=== PATIENT | female | born 1970 | race Caucasian/White ===

== ENCOUNTER 2022-02-23 13:46 | Outpatient (CLI) | payer BC, SELFPAY ==
--- NOTE | 2022-02-23 14:00 | CRLHL7_ITS ---
For Patients: As a result of the Century Cures Act, medical imaging exams and procedure reports are released immediately into your electronic medical record. You may view this report before your referring provider. If you have questions, please contact your health care provider. INDICATION: POST MENOPAUSAL BLEEDING COMPARISON: none TECHNIQUE: 2D headley scale and color Doppler images were acquired of the pelvis using a transabdominal and transvaginal approach. FINDINGS: Uterine echotexture is heterogeneous. Uterus measures 7.7 cm in length by 4.0 cm in AP diameter by 5.2 cm in transverse dimension. Right fundal uterine fibroid is present measuring 1.3 x 1.1 x 1.6 cm. Left lower uterine segment fibroid noted measuring 9 x 8 x 11 millimeters. Right lateral fibroid measures 2.1 x 1.5 x 2.0 cm. Areas of increased echogenicity within the lower uterine segment endometrium likely represents air. Endometrial thickness 7 millimeters. The right ovary measures 3.1 x 1.1 x 1.3 cm in size and the left ovary is not visualized. The right ovary demonstrates normal arterial and venous blood flow on color Doppler analysis. There are no suspicious fluid collections within the cul-de-sac. IMPRESSION: Endometrium is somewhat heterogeneous and measures 7 millimeters. Air is suspected within the lower uterine endometrial canal. Multiple uterine fibroids, partially exophytic and intramural, measuring up to 2.1 cm. Dictated by Andrew Rueda MD @ 02/24/2022 10:00:58 AM (Electronically Signed)
== END 2022-02-23 13:47 | disposition home or self-care (01) ==
PROVIDERS: Visit Provider Obstetrics & Gynecology
DX: N95.0 Postmenopausal bleeding (principal); D25.1 Intramural leiomyoma of uterus
CPT/HCPCS: 76830; 76856

== ENCOUNTER 2022-03-24 07:47 | Day surgery (SDC) | payer BC, SELFPAY ==
[2022-03-24] MEDS: LACTATED RINGERS 1000 ML 1,000 ML 100 ML IV ×3 (07:30→11:13)
[2022-03-24 07:59] VITALS: BMI 39.2
[2022-03-24 08:24] LABS: Ur HCG Qualitative* Negative (Negative)
[2022-03-24 08:32] VITALS: BP 139/75; PULSE 72; RESP 18; TEMP 36.7; O2SAT 99
--- NOTE | 2022-03-24 09:53 | W.PM.GYNPROC ---
Procedure Note Date Seen: 03/24/22 Procedure Details: PREOPERATIVE DIAGNOSIS: Postmenopausal bleeding Thickened endometrial stripe on ultrasound POSTOPERATIVE DIAGNOSIS: Postmenopausal bleeding Thickened endometrium PROCEDURE: Hysteroscopy, dilation and curettage SURGEON: Naina Nagy MD ANESTHESIA: Monitored anesthesia care, paracervical block IV FLUIDS: 450 mL crystalloid URINE OUTPUT: Approximately 10 mL EBL: 5 mL SALINE DEFICIT: 45 mL FINDINGS: 1. Upon pelvic exam under anesthesia, vagina and cervix were normal in appearance. Uterus was mobile, anteverted, and of normal size and texture. There were no palpable adnexal masses. 2. Upon hysteroscopy, the endometrium appeared slightly thickened in an erratic fashion, with patches of reddened endometrium irregularly throughout. The cavity was of normal shape, and tubal ostia were normal in appearance. Endocervix was normal appearance. COMPLICATIONS: None PROCEDURE IN DETAIL: Patient was taken to the operating room with IV running. She was positioned in dorsal lithotomy position with her legs fully supported in Yellofin stirrups. Monitored anesthesia care was administered. She was prepped and draped in the usual sterile fashion. Exam under anesthesia was performed for the above-noted findings. Her bladder was drained via straight catheterization. Speculum was inserted. Cervix visualized and grasped along the anterior lip with a single-tooth tenaculum. Cervix was serially dilated to accommodate the TRUCLEAR hysteroscope. This was assembled with saline inflow and outflow in place. The line was flushed of bubbles. The hysteroscope was advanced through the cervix into the endometrial cavity for the above noted findings. The tissue morcellator was then inserted through the operating channel. Window lock was performed. Under direct visualization, the endometrial cavity was circumferentially curetted with the tissue morcellator. The hysteroscope and morcellator were then removed from the uterus. Tenaculum was removed from the anterior lip of cervix. Hemostasis was achieved with silver nitrate. Patient tolerated procedure well. She was taken to recovery area in stable condition.
--- NOTE | 2022-03-24 10:34 | W.ANESCHARGE ---
Anesthesia Charges Start Date/Time Anesthesia Start Date: 03/24/22 Anesthesia Start Time: 08:32 Stop Date/Time Anesthesia Stop Date: 03/24/22 Anesthesia Stop Time: 09:33
[2022-03-24 10:36] VITALS: BP 127/77; PULSE 68; RESP 16; TEMP 36.1; O2SAT 99
[2022-03-24 10:45] VITALS: BP 135/81; PULSE 72; RESP 16; O2SAT 99
[2022-03-24 11:11] VITALS: BP 134/82; PULSE 74; RESP 18; O2SAT 99
--- NOTE | 2022-03-24 11:49 | W.ANESCHARGE ---
Anesthesia Charges Start Date/Time Anesthesia Start Date: 03/24/22 Anesthesia Start Time: 08:32 Stop Date/Time Anesthesia Stop Date: 03/24/22 Anesthesia Stop Time: 09:33
== END 2022-03-24 11:40 | disposition home or self-care (01) ==
PROVIDERS: Anesthesiology; Visit Provider Obstetrics & Gynecology
PROC: 0UDB8ZZ Extraction of Endometrium, Via Natural or Artificial Opening Endoscopic (ICD-10-PCS; CPT 58558; principal; 2022-03-24 09:00)
DX: N95.0 Postmenopausal bleeding (principal); R93.89 Abnormal findings on diagnostic imaging of other specified body structures
CPT/HCPCS: 58558; 00952; 36415; 81025; 86850; 86900; 86901; J1100; J2250; J2405; J2704; J3010; J7120

== ENCOUNTER 2023-10-13 00:06 | Emergency (ER) | payer BC, SELFPAY ==
[2023-10-13 00:21] VITALS: BP 126/75; PULSE 109; RESP 16; TEMP 37.1; O2SAT 96; BMI 40.5
--- NOTE | 2023-10-13 00:41 | XR_ITS ---
Patient: SENIA PRETSON Facility:?[facility] Patient ID:?[id number] Site Patient ID:?[id number] Site :?[id number] Study:?XRay-Abdomen 2 VIEW-10/13/2023 1:09:37 AM Ordering Physician:ROSAMARIA Final Report: INDICATION: Pelvic pressure, recent surg- knee surgery TECHNIQUE: Abdomen/Pelvis radiograph 3 views COMPARISON: None FINDINGS: The sensitivity and specificity of the exam are moderately limited by the patient`s body habitus. Bowel: The bowel gas pattern is normal without evidence of bowel obstruction. Soft tissue: No evidence of pneumoperitoneum present. No suspicious calcifications noted. Bone: Unremarkable for age. IMPRESSION: 1. Unremarkable appearance of the visualized abdomen. Dictated by: Robbi Trotter MD @ 10/13/2023 01:10:33 Signed by:Lamar Trotter MD @10/13/2023 1:10:33 AM (Electronic Signature)
--- NOTE | 2023-10-13 00:42 | ED_ITS ---
HPI - General Adult General Chief complaint: Urogenital Problems, Female Stated complaint: Unable to Urinate Time Seen by Provider: 10/13/23 00:07 Source: patient Mode of arrival: ambulatory Limitations: no limitations History of Present Illness HPI narrative: 53-year-old female postop day 3 from uncomplicated left total knee arthroplasty performed at outside center presents for pelvic pressure that radiates into the low back and feeling of constipation. She presents because she was concerned that she could not urinate. Reports that she had been voiding normally until about lunchtime. Has been feeling increasingly constipated and has been using MiraLax, senna, Colace as recommended by her postop team. She says that she has been straining with bowel movements and will have some leakage of urine with t hat as recently as about 4 hours ago, but nothing since. She feels a sensation of pelvic pressure and fullness. She thinks that may be urinary retention. I had the nurse bladder scan her during triage and we are only showing about 50 mL. She has no prior history of urinary retention, she Has never given . No fevers. Once I let her know that her bladder scan did not show a significant amount of urine, she states that she thinks it must be hard stool in the pelvic region that is causing her symptoms and does not know how to relieve it. She has tried a Fleet enema. She is having leakage of soft and liquidy stool around what feels like a hard lump. Denies prior history of rectocele or pelvic floor issues. No prior abdominal surgeries. No dysuria or hematuria. States that she believes that she could be getting dehydrated now to as she has not been drinking liquids as well through today due to her abdominal discomfort. No vomiting. Past medical history benign per her report. Denies long-term medications. Her only prescribed medications are her postoperative medications which include oxycodone, Celebrex, senna, prophylactic aspirin. Her accompanying paperwork is reviewed. Nonsmoker. ROS notable for the abdominal /pelvic symptoms as described above only, otherwise denies times 12 systems. Related Data Home Medications Medication Instructions Recorded Confirmed acetaminophen 650 mg 1,300 mg PO Q12H 02/23/22 10/13/23 tablet,extended release (Tylenol Arthritis Pain) naproxen sodium 220 mg tablet 440 mg PO QDAY 02/23/22 10/13/23 (Aleve) omeprazole 20 mg capsule,delayed 20 mg PO QDAY 02/23/22 10/13/23 release aspirin 81 mg tablet,delayed 81 mg PO BID 10/13/23 10/13/23 release celecoxib 200 mg capsule 200 mg PO DAILY 10/13/23 10/13/23 hydroxyzine pamoate 25 mg capsule 25 mg PO Q4-6H PRN muscle spasm 10/13/23 10/13/23 ondansetron 4 mg disintegrating 4 mg PO Q4H nausea 10/13/23 10/13/23 tablet oxycodone 5 mg tablet 5 mg PO Q4-6H PRN pain 10/13/23 10/13/23 sennosides 8.6 mg-docusate sodium 1 tab PO DAILY PRN 10/13/23 10/13/23 50 mg tablet (Stimulant Laxative Plus) tramadol 50 mg tablet 50 - 100 mg PO Q4-6H PRN pain 10/13/23 10/13/23 Allergies Allergy/AdvReac Type Severity Reaction Status Date / Time azithromycin Allergy Intermediate nausea and Verified 10/13/23 00:21 vomiting PFSH PFSH Medical History Knee pain ?M25.569 - Pain in unspecified knee (ICD-10) Surgical History H/O wisdom tooth extraction ?K08.409 - Partial loss of teeth, unspecified cause, unspecified class (ICD- 10) H/O arthroscopy of left knee ?Z98.890 - Other specified postprocedural states (ICD-10) S/P excision of lipoma ?Z98.890 - Other specified postprocedural states (ICD-10) ?Z86.018 - Personal history of other benign neoplasm (ICD-10) Hx of appendectomy ?Z90.49 - Acquired absence of other specified parts of digestive tract (ICD- 10) Family History Aunt Uterine cancer Mother Uterine cancer Paternal Grandfather Coronary artery disease Social History Narrative: She lives in [place] with her partner of 13 years. She is employed at [employer]. She does not smoke She really drinks alcohol She does not use recreational drugs Smoking Status: Never smoker Do you use any of these nicotine containing products: None How often do you have a drink containing alcohol: monthly or less Alcohol type: wine How many standard drinks containing alcohol do you have on a typical day: 1 or 2 How often do you have six or more drinks on one occasion: Never AUDIT-C Alcohol total score: 1 Non-prescribed substance use: denies use Caffeine: Yes (COFFEE) Are you using contraception or practicing any form of control: No Exam Const: Vital Signs, click to edit/add: Vital Signs - 24 hr 10/13/23 00:21 Temperature 98.7 F Pulse Rate [Pulse Oximeter] 109 H Respiratory Rate 16 Blood Pressure [Ri ght Upper Arm] 126/75 Pulse Oximetry 96 Oxygen Delivery Me thod Room Air Documenting provider has reviewed patient's vital signs: yes Common normals: no apparent distress General appearance: cooperative and well kempt HENMT: Common normals: normocephalic Head and scalp: normocephalic Face and sinus: normal facial exam Mouth: oral and palatal mucosa normal Throat: posterior oropharynx normal Eye: General eye: normal appearance of both eyes Resp: Common normals: normal respiratory effort and no use of accessory muscles Effort & inspection: able to speak in complete sentences Cardio: Common normals: regular rate and regular rhythm Rate: regular rate Rhythm: regular rhythm Other: 2/6 systolic ejection murmur GI: Common normals: Normal to inspection, nondistended, normoactive bowel sounds present, soft to palpation, non-tender, no hepatosplenomegaly and no masses Palpation: soft and no hepatosplenomegaly Other: obese but soft. Bowel sounds are normoactive throughout. Extremity: Other: Left knee with midline incision consistent with reported procedure. No surrounding redness. Minimal swelling. Compression stocking in place and lower to examine calf. Soft, no obvious signs of DVT, redness, inflammation or tenderness. Psych: Appearance: well kempt Activity/motor behavior: appropriate eye contact Insight: insight good Judgement: judgment good Skin: Narrative: Expected postoperative changes, otherwise skin exam benign. Course Course ED Course: Bladder scan showing less than 2 oz. I do not suspect urinary retention. I suspect that she has retained hard stool that is causing her pelvic pressure. I am concerned that she could be getting dehydrated since she has not urinated in this period of time and also does not have much urine in her bladder. Will place an IV they will check a CBC and basic electrolytes, give 1 L of normal saline. Abdominal x-ray to assess constipation or other issues that could be contributing to her pelvic symptoms. If this is negative which I will suspect it will be. Within recommend more aggressive management of fecal retention, likely manual disimpaction. Reevaluation(s) Time of Reevaluation #1: 02:56 Reevaluation #1: Patient had good relief after 2nd half of the enema. Passed a large amount of firm, yousif like stool and then liquid stool behind. She tolerated the IV fluid with no difficulty. Pelvic pressure sensation is relieved. She is feeling better. We discussed stool regimen. She will continue on once daily MiraLax, increase her senna to 1 tablet twice daily and continue on twice daily Colace. Instructed on how to titrate the senna based on the number of oxycodone that she is using and increase the MiraLax up to every 8 hours as needed to facilitate a bowel movement every 24 hours. She will continue her current pain medication regimen, alarm symptoms reviewed. She verbalizes understanding and agreement. Vital Signs Vital signs: Initial Vital Signs Temperature 98.7 F 10/13/23 00:21 Temperature Source Temporal Artery Scan 10/13/23 00:21 Pulse Rate 109 H 10/13/23 00:21 Pulse Strength 3+ Normal 10/13/23 00:21 Respiratory Rate 16 10/13/23 00:21 Blood Pressure 126/75 10/13/23 00:21 Blood Pressure Mean 92 10/13/23 00:21 Blood Pressure Position Sitting 10/13/23 00:21 Pulse Oximetry 96 10/13/23 00:21 Oxygen Delivery Method Room Air 10/13/23 00:21 Vital Signs Temperature 98.7 F 10/13/23 00:21 Pulse Rate 109 H 10/13/23 00:21 Respiratory Rate 16 10/13/23 00:21 Blood Pressure 126/75 10/13/23 00:21 Pulse Oximetry 96 10/13/23 00:21 Oxygen Delivery Method Room Air 10/13/23 00:21 Temperature 98.7 F 10/13/23 00:21 Pulse Rate 109 H 10/13/23 00:21 Respiratory Rate 16 10/13/23 00:21 Blood Pressure 126/75 10/13/23 00:21 Pulse Oximetry 96 10/13/23 00:21 Oxygen Delivery Method Room Air 10/13/23 00:21 Medications Administered Medications: Discontinued Medications Generic Name Dose Route Start Last Admin Trade Name Freq PRN Reason Stop Dose Admin Docusate Sodium 100 mg 10/13/23 01:41 10/13/23 01:44 Docusate Sodium 100 Mg Capsule J-TUBE 10/13/23 01:42 100 mg ONCE ONE Administration Sodium Chloride 1,000 mls @ 1,000 mls/hr 10/13/23 00:41 10/13/23 01:15 0.9 % Sodium Chloride 1000 Ml IV 10/13/23 01:40 1,000 mls/hr .Q1H BARBIE Administration Magnesium Citrate 150 ml 10/13/23 01:39 10/13/23 01:43 Magnesium Citrate 300 Ml Solution J-TUBE 10/13/23 01:40 150 ml ONCE ONE Administration Mineral Oil 60 ml 10/13/23 01:40 10/13/23 01:44 Mineral Oil ME 10/13/23 01:41 60 ml ONCE ONE Administration Medical Decision Making Lab Data Lab results reviewed: Yes I reviewed the patient's lab results Lab results narrative: Creatinine looks great. BUN creatinine ratio was a little elevated, indicating some mild dehydration. Remainder of labs are essentially reassuring for the postoperative state. Mild elevation neutrophils and white blood cell count, not necessarily diagnostic of infection and postoperative state. No fever, tachycardia or other worrisome findings. Labs: Lab Results 10/13/23 Range/Units 01:11 WBC 15.22 H (4.50-11.00) K/uL RBC 3.70 L (4.00-5.20) m/uL Hgb 10.7 L (12.0-16.0) gm/dL Hct 32.8 L (33.0-51.0) % MCV 89 (80-100) fL MCH 29 (26-34) pg MCHC 33 (32-36) gm/dL RDW Coeff of Zhao 12.9 (11.5-15.5) % Plt Count 347 (140-440) K/uL Neut % (Auto) 81.8 H (42.0-72.0) % Lymph % (Auto) 10.3 L (20-44) % [place] % (Auto) 6.6 (0.0-11.0) % Eos % (Auto) 1.0 (0.0-7.0) % Baso % (Auto) 0.1 (0.0-3.0) % Neut # (Auto) 12.40 H (1.7-7.0) K/uL Lymph # (Auto) 1.60 (0.90-2.90) K/uL [place] # (Auto) 1.00 H (0.00-0.90) K/UL Eos # (Auto) 0.20 (0.00-0.50) K/uL Baso # (Auto) 0.00 (0.00-0.30) K/uL Abs Immat Gran (auto) 0.00 (0.00-0.30) K/uL Imm/Tot Granulo (auto) 0.2 % Sodium 138 (135-149) mmol/L Potassium 3.7 (3.6-5.1) mmol/L Chloride 103 (96-114) mmol/L Carbon Dioxide 29 (20-32) mmol/L Anion Gap 6 L (7-15) mEq/L BUN 20 (7-30) mg/dL Creatinine 0.6 (0.5-1.5) mg/dL Estimated Creat Clear 92.56 Estimated GFR 107 ml/min Glucose 119 H (60-115) mg/dL Calcium 8.9 (8.4-10.6) mg/dL Imaging Data Abdominal x-ray: Attestation: I have reviewed the pertinent imaging results. My impression: Some retained stool including fecal burden in the rectum. Radiologist's impression: IMPRESSION: 1. Unremarkable appearance of the visualized abdomen. Discharge Plan Discharge Clinical Impression: Constipation Patient Disposition: Home w/ Parent or Adult Condition: Improved Instructions: Constipation (DC) Additional Instructions: As we discussed, there are no signs of urinary obstruction. I think that you did get just a little bit dehydrated from the fluid shifting around after surgery. The IV fluids will certainly help with this. I do not think that the pelvic pressure that your having has anything to do with her bladder but rather just from some mild constipation. You were given a mineral oil enema with some additional stool softeners to help work on this stool area. I am glad that this was successful for you. As far as your stool softeners and laxatives, remember that this is something you will now titrate based on your needs. Continue on your docusate also known as Colace which is your stool softener. I would recommend that you take senna twice daily. Add in the MiraLax daily if needed. Try to titrate your bowel movements to at least once daily. You can back off on the stool softeners and laxatives if you are getting too much diarrhea. A good rule of thumb is 1 senna tablet for every 2-3 oxycodone tablets. Remember that it is important to stay on a stimulant laxative to help push things through. The Colace will only soften things, but this is still important as well. If you get very constipated, you may use the MiraLax up to every 8 hours until things flush through nicely. It may take up to a couple of days. Remember that it is okay to use a gloved, lubricated finger to loosen any hard stool that is just at the rectal vault. Unfortunately, this is a common problem for women. Activity Level: Activity as Tolerated Discharge Diet: Regular Prescriptions: No Action naproxen sodium [Aleve] 220 mg tablet 440 mg PO QDAY acetaminophen [Tylenol Arthritis Pain] 650 mg tablet extended release 1,300 mg PO Q12H omeprazole 20 mg capsule,delayed release(DR/EC) 20 mg PO QDAY celecoxib 200 mg capsule 200 mg PO DAILY sennosides-docusate sodium [Stimulant Laxative Plus] 8.6-50 mg tablet 1 tab PO DAILY PRN aspirin 81 mg tablet,delayed release (DR/EC) 81 mg PO BID tramadol 50 mg tablet 50 - 100 mg PO Q4-6H PRN (Reason: pain) ondansetron 4 mg tablet,disintegrating 4 mg PO Q4H oxycodone 5 mg tablet 5 mg PO Q4-6H PRN (Reason: pain) hydroxyzine pamoate 25 mg capsule 25 mg PO Q4-6H PRN (Reason: muscle spasm) Follow Up/Referrals: Provider,Not a Local [Primary Care Provider] - Stand Alone Forms: [facility]
--- OUTSIDE RECORDS SUMMARY | 2023-10-13 00:48 | XMS_ITS | Clinical Summary ---
Author Name Unknown Organization [facility] Address [place], [place] [address] Care Team Providers Care Vehicle Body Builder Name Role Phone Pcp, No Primary Care Provider Unavailabl e Allergies Active Allergy Reactions Criticality Noted Date Comments Azithromycin Nausea And Vomiting, Intolerance-Can't Take 07/14/2006 Medications Medication Sig Dispensed Refills Start Date End Date Status Omeprazole 20 mg tablet Take 1 tablet by mouth once daily. 0 10/16/2014 Active nystatin powder (MYCOSTATIN) powderIndications:C andidiasis, intertrigo Apply 1 Strip topically to affected area(s) 3 times daily. 60 g 5 10/29/2021 Active ascorbic acid, vitamin C, (Vitamin C) 1,000 mg tablet Take 1,000 mg by mouth once daily. Active cholecalciferol (VITAMIN D3) 1,000 unit tablet Take 1,000 units by mouth once daily. Active magnesium oxide 200 mg magnesium tab Take by mouth. Acti ve Lactobac 40-Bifido 3-S.thermop (Probiotic) 100 billion cell cap Take by mouth. Acti ve naproxen (NAPROSYN) 500 mg tablet Take 500 mg by mouth two times daily. Active acetaminophen SR (Tylenol Arthritis Pain) 650 mg Extended-Release tablet Take 1,300 mg by mouth every 8 hours. Max acetaminophen dose: 4000mg in 24 hrs. Active Active Problems Problem Noted Date Diagnosed Date Family history of colonic polyps 05/17/2023 Family history of malignant neoplasm of other genital organs 05/17/2023 Colon polyp 09/15/2022 Overview: Colonoscopy 09/2022 TA,, family history of advanced adenoma, repeat colonoscopy in 5 years, propofol sedation Pap smear for cervical cancer screening 10/04/19 Overview: 10/2021 NIL/HPV negative. Plan: Pap/HPV due 10/2026 Osteoarthritis of both knees 10/07/2019 Vitamin D deficiency 10/17/2014 Lipoma 06/28/2013 Overview: Neck, right posterior Dysplastic nevus 09/02/2008 Encounters Date Type Department Care Team Description 09/11/2023 9:10 AM CDT Preop Visit [facility] [address] [place] [address] Deepti Abbott, DO Pre-Op Exam (10/08 TOTAL KNEE REPLACEMENT [facility] JULIANNA MCNULTY / /) 09/11/2023 Travel from Last 3 Months Immunizations Name Administration Dates Next Due HepA-HepB (Twinrix) 11/13/2008,09/16/2008 Td (Age >=7 Years) 07/16/2002 Tdap 10/14/2014 Family History Medical History Relation Name Comments Other Brother colon polyps, m ultiple Anxiety disorder Daughter 1 Anxiety disorder Daughter 2 Colon polyps Father No Known Problems Half-Brother No Known Problems Half-Sister Diabetes Maternal Grandmother Cancer Mother uterine Heart Disease Paternal Grandfather Diabetes Paternal Uncle No Known Problems Sister Cancer-breast No Family History Cancer-ovarian No Family History Relation Name Status Comments Brother Alive Daughter 1 Alive adopted Daughter 2 Alive adopted Father Alive Half-Brother Alive Half-Sister Alive Maternal Grandfather Maternal Grandmother Mother Alive Paternal Grandfather Paternal Grandmother Paternal Uncle Sister Alive Social History Tobacco Use Types Packs/Day Years Used Date Smoking Tobacco: Never Smokeless Tobacco: Never Tobacco Cessation:Counseling Given: Yes Alcohol Use Standard Drinks/Week Comments Not Currently 0 (1 standard drink = 0.6 oz pur e alcohol) rarely PHQ-2 Answer Date Recorded PHQ-2 TOTAL SCORE 0 05/17/2023 Social Connections Answer Date Recorded Frequency of Communication with Friends and Fami ly 0 05/16/2023 Financial Resource Strain Answer Date R ecorded Difficulty of Paying Living Expenses 3 05/16/2023 Difficulty of Paying Living Expenses Not on file 05/16/2023 Food Insecurity Answer Date Recorded Worried About Running Out of Food in the Last Ye ar 1 05/16/2023 Transportation Needs Answer Date Record ed Lack of Transportation (Medical) 1 05/16/2023 Housing Stability Answer Date Recorded Unable to Pay for Housing in the Last Year 1 05/16/2023 Sex and Gender Information Value Date Recorded Sex Assigned at Female 03/01/2021 2:11 PM CDT Gender Identity Female 03/01/2021 2:11 PM CDT Sexual Orientation Straight 03/01/2021 2: 11 PM CDT Obstetrics History Para Term AB IAB SAB Ectopic Multiple Livin g Live Births 0 0 0 0 0 0 0 0 2 Comments Two adopted children Last Filed Vital Signs Vital Sign Reading Time Taken Comments Blood Pressure 123/77 09/11/2023 9:18 AM CDT Pulse 65 09/11/2023 9:18 AM CDT Temperature 36.8 ??C (98.3 ??F) 02/20/2021 1:06 PM CD T Respiratory Rate 14 09/13/2022 9:00 AM CDT Oxygen Saturation 99% 05/17/2023 3:49 PM BANANA EXPERT Inhaled Oxygen Concentration - - Weight 109.8 kg (242 lb) 09/11/2023 9:18 AM CDT Height 162 cm (5' 3.78) 09/11/2023 9:18 AM CDT Body Mass Index 41.83 09/11/2023 9:18 AM CDT Plan of Treatment Health Maintenance Due Date Last Done Comments Hepatitis C screening for age 18-79 1987 Zoster (shingles) series for age 50+ (1 of 2) 2019 Mammogram for age 45-75 11/09/2022 11/10/19, 10/29/2021, 10/15/2014, Additional history exists COVID-19 vaccine series ( season) 2023 Influenza for age 50-64 02/04/2024 Depression screening for age 12+ 05/17/2024 05/17/2023, 10/29/2021, 08/31/2018, Additional history exists BMI (ht and wt on same day) for age 18+ 09/10/2024 09/11/2023, 05/17/2023, 09/26/2022, Additional history exists Tetanus booster 10/14/2024 10/14/2014, 07/16/2002 Pap test for age 21-65 10/29/2026 , 10/29/2021, 05/18/2016, Additional history exists Colonoscopy through age 75 09/14/2027 09/13/2022, Lipids for age 45-75 05/17/2028 05/17/2023, 10/29/2021, 08/28/2018, Additional history exists HIV for age 15-65 Completed 09/02/2008 Tdap Completed 10/14/2014 Pneumococcal series for age 6-64 Aged Out No longer eligible based on patient's age to complete this topic Procedures Procedure Name Priority Date/Time Associated Diagnosis Comments CREATININE Routine 09/11/2023 9:58 AM CDT Pre-op exam HEMOGLOBIN Routine 09/11/2023 9:58 AM CDT Pre-op exam LIPID PANEL W REFLEX MEASURED LDL Routine 05/17/2023 4:55 PM BANANA EXPERT Screening cholesterol level COLONOSCOPY 09/13/2022 7:30 AM CDT XR MAMMO SHAYLA UNI ADDL VIEWS LEFT HERMELINDO 11/09/2021 2:59 PM CDT Abnormal mammogram HPV THIN PREP Routine 10/29/2021 11:23 AM CDT Pap smear for cervical cancer screening ANTI HIV 1/2 Routine 09/02/2008 2:17 PM CDT Screening for STDs (Sexually Transmitted Diseases) from Last 3 Months or Most Recently Relevant to Health Maintenance Results * HEMOGLOBIN (09/11/2023 9:58 AM CDT) HEMOGLOBIN 12.3 12.0 - 16.0 g/dL 09/11/2023 10:10 AM CDT [facility] MCV 89 80 - 100 fL 09/11/2023 10:10 AM CDT [facility] Blood BLOOD SPECIMEN / Unknown Venipuncture / Unknown 09/11/2023 9:58 AM CDT 09/11/2023 9:58 AM CDT Deepti Abbott DO HEMATOLOGY [facility] [address] [place] [address], * CREATININE (09/11/2023 9:58 AM CDT) eGFR >90 >90 mL/min/1.7 3m2 09/11/2023 5:52 PM CDT [facility] Comment:As of 2021, eG FR is calculated by the CKD-EPI creatinine equation without race adjustment. ??eGFR can be influenced by muscle mass, exercise, and diet. ??The reported eGFR is an estimation only and is only applicable if the renal function is stable. CREATININE 0.73 0.50 - 0.90 mg/dL 09/11/2023 5:52 PM CDT [facility] [employer] [facility] Blood BLOOD SPECIMEN / Unknown Venipuncture / Unknown 09/11/2023 9:58 AM CDT 09/11/2023 9:58 AM CDT Deepti Abbott DO CHEMISTRY Performing Organization Address City/[facility]/ZIP Co de Phone Number [facility] [address] [address], [place] * LIPID PANEL W REFLEX MEASURED LDL (05/17/2023 4:55 PM BANANA EXPERT) CHOLESTEROL,TOTAL 197 100 - 199 mg/dL 05/18/2023 2:29 PM BANANA EXPERT [facility] Comment: Cholesterol, Total Reference Ranges Desirable <200 mg/dL Borderline 200-239 mg/dL High >=240 mg/dL TRIGLYCERIDES 134 <150 mg/dL 05/18/2023 2:29 PM [facility]NA EXPERT [facility] HDL CHOLESTEROL 54 >40 mg/dL 12/14/202 3 2:29 PM BANANA EXPERT [facility] NON-HDL CHOLESTEROL 143 <145 mg/dl 05/18/2023 2:29 PM BANANA EXPERT [facility] CHOL/HDL RATIO 3.65 <4.50 05/18/2023 2:29 PM BANANA EXPERT [facility] LDL CHOLESTEROL 116 <=130 mg/dL 05/18/2023 2:29 PM BANANA EXPERT [facility] VLDL CHOLESTEROL 27 <=30 mg/dL 05/18/2023 2:29 PM BANANA EXPERT [facility] PROVIDER ORDERED STATUS RANDOM 05/18/2023 2:29 PM BANANA EXPERT [facility] Blood BLOOD SPECIMEN / Unknown Venipuncture / Unknown 05/17/2023 4:55 PM BANANA EXPERT 05/17/2023 4:55 PM BANANA EXPERT Ivelisse Carpenter MD CHEMISTRY [facility] [address] [place] [id number], * COLONOSCOPY (09/13/2022 7:30 AM CDT) 09/13/2022 7:30 AM CDT Narrative Transcriptions Rad Leslie MD - 09/13/2022 8:46 AM CDT Patient Name: Gladys Mata Procedure Date: 09/13/2022 Gender: Female Date of : 1970 Admit Type: Outpatient Procedure: Colonoscopy Proceduralist: Rad Leslie MD , Miguelina Skinner, RN(Nurse), Lea Meredith (Nurse) Indications/Pre-Op Diagnosis: Colon cancer screening in patient with 1st-degree relative having advanced adenomaof the colon before age 60, This is thepatient's first colonoscopy Medications: Fentanyl 200 micrograms IV, Midazolam 6 mgIV, The level of sedation administered wasmoderate Procedure Description: The patient had risks, benefits and alternatives explained to andgave informed consent. The patient had a stable cardiopulmonary status and judged an adequate candidate for conscious sedation. The endoscope [id number] was passed through the anus andadvanced to the cecum, identified by appendiceal orifice and ileocecal valve.The colonoscopy was performed without difficulty. The patient toleratedthe procedure well. The quality of the bowel preparation was good. The ileocecal valve, appendiceal orifice, and rectum were photographed. Complications: No immediate complications. Estimated Blood Loss & Specimen: Estimated blood loss: none. Specimen collected - Yes and sent to Laboratory Findings: The perianal and digital rectal examinations were normal. A 4 mm polyp was found in the distal sigmoid colon. The polyp was sessile. The polyp was removed with a hot snare. Resection andretrieval were complete. The exam was otherwise without abnormality. Impressions/Post-Op Diagnosis: - One 4 mm polyp in the distal sigmoid colon, removed with a hotsnare. Resected and retrieved. - The examination was otherwise normal. Recommendation: - Patient has a contact number available for emergencies. The signsand symptoms of potential delayed complications were discussed with the patient. Return to normal activities tomorrow. Written discharge instructions were provided to the patient. - Resume previous diet. - Continue present medications. - Await pathology results. - Repeat colonoscopy in 5 years. - Patient's sedation for a repeat study will require Anesthesia staff assistance. Moderate Sedation: A time out was performed before the procedure. Moderate (conscious) sedation was administered by the endoscopy nurse and supervised bythe endoscopist. The following parameters were monitored: oxygensaturation, heart rate, blood pressure, EKG, CO2, respiratory rate, adequacy of pulmonary ventilation and reponse to care. Please refer to the patient's medical record flowsheets and nursing notes for moderate sedation details. Total physician intraservice time was 29 minutes. Rad Leslie MD 09/13/2022 8:46:03 AM This report has been signed electronically. Note Initiated On: 09/13/2022 7:30 AM Procedure Code(s): --- Professional --- 37399, Colonoscopy, flexible; with removalof tumor(s), polyp(s), or other lesion(s) bysnare technique Diagnosis Code(s): --- Professional --- Z83.71, Family history of colonic polyps D12.5, Benign neoplasm of sigmoid colon CPT copyright 2021 [employer]. All rights reserved. The codes documented in this report are preliminary and upon certified medical coder reviewmay be revised to meet current compliance requirements. Scope In: 8:12:52 AM Scope Withdrawal Time 0 hours 19 minutes 16 seconds Scope Out: 8:39:03 AM Rad Leslie MD PROCEDURE ORD * XR MAMMO SHAYLA UNI ADDL VIEWS LEFT (11/09/2021 2:59 PM CDT) Anatomical Region Laterality Modality BREASTS, Breast Left Mammography 11/09/2021 3:22 PM CDT Impressions 11/10/2021 2:03 PM CDT Small focus of fat necrosis LEFT breast 8 o'clock 2 cm from the nipple measuring 5 millimeters. No evidence of malignancy. RECOMMENDATIONS: Annual BILATERAL screening mammography. BI-RADS Category 2: Benign Results and recommendations discussed with the patient. Dictated by: Andrew Rueda MD @11/09/2021 3:22:21 PM/antonio PATIENTS: You will also receive a letter with your examination results in an easy to read format. ??If you have questions about your results, please contact your referring provider. Narrative 11/10/2021 2:03 PM CDT As a result of the Century Cures Act, medical imaging exams and procedure reports are released immediately into your electronic medical record. ??You may view this report before your referring provider. ??If you have questions, please contact your health care provider. LEFT BREAST MAMMOGRAM DIGITAL ADDITIONAL VIEWS WITH TOMOSYNTHESIS 11/09/2021 LEFT BREAST ULTRASOUND 11/09/2021 CLINICAL HISTORY: LEFT breast mass/asymmetry. COMPARISON: 10/29/2021. TECHNIQUE: Digital LEFT mammogram in four projections. Real-time ultrasound imaging of LEFT breast with imaging documentation. BREAST COMPOSITION: There are scattered areas of fibroglandular density. FINDINGS: 3D CC, 3D true lateral, 3D spot-compression CC/MLO mammograms LEFT breast submitted. Persistent ovoid density within the lower inner quadrant LEFT breast. No architectural distortion. No suspicious calcifications or adenopathy. Targeted LEFT breast ultrasound performed at 8 o'clock 2 cm from the nipple. There is a focal area of mixed echogenicity just beneath the skin measuring 5 x 5 x 4 millimeters. No abnormal vascularity. Bambi RUIZ MAMMO * HPV HIGH RISK (10/29/2021 11:23 AM CDT) TYPE 16 Negative Negative 11/03/2021 11:40 AM CDT [facility] TYPE 18 Negative Negative 11/03/2021 11:40 AM CDT [facility] OTHER HIGH RISK TYPES Negative Negative 11/03/2021 11:40 AM CDT [facility] Other (Cervical) Non-Blood / Unknown 10/29/2021 11:23 AM CDT 10/29/2021 5:51 PM CDT Narrative [facility] - 11/03/2021 11:40 AM CDT HPV types 16, 18, 31, 33, 35, 39, 45, 51, 52, 56, 58, 59, 66 and 68 DNA were undetectable or below the pre-set threshold. Methodology: Juan Manuel Mitchell 4800 HPV Test Bambi RUIZ MICROBIOLOGY [facility] [address] [place] [address], * HIV (09/02/2008 2:17 PM CDT) ANTI HIV 1/2 Non-reacti ve [facility] Blood specimen (specimen) BLOOD SPECIMEN / Unknown 09/02/2008 2:17 PM CDT 09/02/2008 2:12 PM CDT Narrative [facility] - 09/03/2008 2:31 PM CDT HBS ANTIGEN NEUTRAL Canceled, laboratory error. Kaylie De Leon MD SEND OUTS [facility] [place] ZIP [id number] [address] from Last 3 Months or Most Recently Relevant to Health Maintenance Care Teams Vehicle Body Builder Relationship Specialty Start Date End Date Pcp, No . PCP - General 09/13/22
[2023-10-13] MEDS: 0.9 % SODIUM CHLORIDE 1000 ml 1,000 ML IV (01:15)
[2023-10-13 01:16] LABS: Basophils Percent Auto 0.1 % (0.0-3.0); Hematocrit 32.8 % (33.0-51.0); Hemoglobin* 10.7 gm/dL (12.0-16.0); Immature Granulocytes Pct Auto 0.2 %; Lymphocytes Percent Auto 10.3 % (20-44); Mean Corpuscular HGB Conc 33 gm/dL (32-36); Mean Corpuscular Hemoglobin 29 pg (26-34); Mean Corpuscular Volume 89 fL (80-100); Monocytes Percent Auto 6.6 % (0.0-11.0); Neutrophils Percent Auto 81.8 % (42.0-72.0); Platelet Count* 347 K/uL (140-440); RDW Coefficient of Variation % 12.9 % (11.5-15.5); White Blood Count* 15.22 K/uL (4.50-11.00)
[2023-10-13 01:17] LABS: Slide Review Reflex No
[2023-10-13 01:30] LABS: Chloride* 103 mmol/L (96-114); Potassium* 3.7 mmol/L (3.6-5.1); Sodium* 138 mmol/L (135-149)
[2023-10-13 01:33] LABS: Anion Gap 6 mEq/L (7-15); Blood Urea Nitrogen* 20 mg/dL (7-30); Carbon Dioxide* 29 mmol/L (20-32); Creatinine* 0.6 mg/dL (0.5-1.5); Est. Creatinine Clearance* 92.56; Estimated Glomerular Filt Rate 107 ml/min
[2023-10-13 01:34] LABS: Calcium* 8.9 mg/dL (8.4-10.6); Glucose* 119 mg/dL (60-115)
[2023-10-13] MEDS: MAGNESIUM CITRATE 300 ML SOLUTION 150 ML J-TUBE (01:43)
[2023-10-13] MEDS: MINERAL OIL 60 ML PR (01:44)
[2023-10-13] MEDS: DOCUSATE SODIUM 100 MG CAPSULE J-TUBE (01:44)
--- NOTE | 2023-10-13 01:45 | PC.NURSE ---
pink lady enema admin per protocol, see EMAR for orders
== END 2023-10-13 03:07 | disposition home or self-care (01) ==
PROVIDERS: Emergency Provider Family Medicine
DX: K59.00 Constipation, unspecified (principal)
CPT/HCPCS: 36415; 51798; 74019; 80048; 81003; 85025; 99284; A9270; J7030

== ENCOUNTER 2024-02-27 14:30 | Outpatient (RCR) | payer BC, SELFPAY | END 2024-04-04 11:18 | disposition home or self-care (01) | PROVIDERS: Visit Provider Orthopaedic Surgery | DX: Z96.652 Presence of left artificial knee joint (principal); M25.562 Pain in left knee; Z74.09 Other reduced mobility; R26.81 Unsteadiness on feet; R26.9 Unspecified abnormalities of gait and mobility; R53.1 Weakness; Z51.89 Encounter for other specified aftercare | CPT/HCPCS: 97110; 97116; 97140; 97162 ==